=== PATIENT | female | born 1990 | race Caucasian/White ===

== ENCOUNTER → 2024-07-09 12:52 | Outpatient (BNVA) | payer OTHER, SELFPAY | PROVIDERS: PCP Internal Medicine; Visit Provider Nurse Practitioner Family ==

== ENCOUNTER 2024-10-15 08:36 | Emergency (ER) | payer OTHER, SELFPAY ==
[2024-10-15 09:01] VITALS: BP 117/66; PULSE 75; RESP 24; TEMP 35.9; O2SAT 100; BMI 25.5
[2024-10-15 09:18] LABS: Basophils Percent Auto 0.1 % (0-2); Eosinophils Percent Auto 0.3 % (0-4); Hematocrit 38.6 % (37.0-47.0); Hemoglobin 13.4 g/dl (12.0-16.0); Imm Gran Abs Auto 0.05 X10*3/uL (0.00-0.03); Imm Gran Pct Auto 0.4 % (0.0-0.4); Lymphocytes Absolute Auto 0.4 X10*3/uL (1.2-4.9); MANUAL DIFF FLAG SCAN; Mean Corpuscular HGB Conc 34.7 g/dl (31.0-35.0); Mean Corpuscular Hemoglobin 30.4 pg (27.0-33.0); Mean Corpuscular Volume 87.5 fL (80.0-98.0); Mean Platelet Volume 9.2 fL (9.4-12.3); Monocytes Absolute Auto 0.4 X10*3/uL (0.1-1.2); Monocytes Percent Auto 2.8 % (2-11); Neutrophils Absolute Auto 11.9 x10*3/uL (2.0-8.3); Neutrophils Percent Auto 93.4 % (45-73); Platelet Count 272 X10*3/uL (160-400); Red Blood Count 4.41 X10*6/uL (4.20-5.50); Red Cell Distribution Width 13.1 % (11.0-16.0); SCAN SMEAR FLAG 1; White Blood Count 12.7 X10*3/uL (4.8-10.8)
[2024-10-15 09:36] LABS: Alanine Aminotransferase 17 U/L (0-31); Albumin Level 4.4 g/dL (3.5-5.0); Alkaline Phosphatase 54 U/L (39-117); Anion Gap 16 (12-20); Aspartate Amino Transferase 22 U/L (5-31); Bilirubin Total 1.2 mg/dL (0.0-1.0); Blood Urea Nitrogen 12 mg/dL (9-16); Carbon Dioxide 19 mmol/L (22-29); Chloride 110 mmol/L (96-108); Creatinine Clr Calc Pharmacy 96.1; Estimated Glomerular Filt Rate > 60; Glucose Random 161 mg/dL (60-115); Potassium 3.7 mmol/L (3.3-5.1); Sodium 141 mmol/L (135-145); Total Protein 7.5 g/dL (6.5-8.0)
[2024-10-15 09:43] LABS: SLIDE REVIEW VERIFIED
--- OUTSIDE RECORDS SUMMARY | 2024-10-15 10:12 | XMS_ITS | Clinical Summary ---
Author Organization [facility] it Address [address] [place] [address] Care Team Providers Care Media Consultant Outside Sales Name Role Phone Carlos Louie MD Primary Care Provider [phone] Social History Tobacco Use Types Packs/Day Years Used Date Smoking Tobacco: Never Assessed Comments Unknown Sex and Gender Information Value Date Recorded Sex Assigned at Not on file Legal Sex Female 6:56 PM EST Gender Identity Not on file Sexual Orientation Not on file Plan of Treatment Health Maintenance Due Date Last Done Comments DTaP,Tdap,and Td Vaccines (1 - Tdap) 2008 Hepatitis B Vaccines (1 of 3 - 19+ 3-dose series) 2008 Cervical Cancer Screening: P ap Smear 2010 COVID-19 Vaccine (2023-2 5 season) 2024 Influenza Vaccine (#1) 2024 HIB Vaccines Aged Out No longer eligi ble based on patient's age to complete this topic HPV Vaccines Aged Out No longer eligi ble based on patient's age to complete this topic Hepatitis A Vaccines Aged Out No long er eligible based on patient's age to complete this topic IPV Vaccines Aged Out No longer eligi ble based on patient's age to complete this topic MMR Vaccines Aged Out No longer eligi ble based on patient's age to complete this topic Meningococcal ACWY Vaccine Aged Out N o longer eligible based on patient's age to complete this topic Meningococcal B Vacine Aged Out No lo nger eligible based on patient's age to complete this topic Pneumococcal Vaccine: Pediat rics (0 to 5 Years) and At-Risk Patients (6 to 64 Years) Aged Out No longer eligible b ased on patient's age to complete this topic RSV Immunization Patients Un mango 20 months Aged Out No longer eligible b ased on patient's age to complete this topic Varicella Vaccines Aged Out No longer eligible based on patient's age to complete this topic Care Teams Media Consultant Outside Sales Relationship Specialty Start Date End Date Carlos Louie MD [address] [place] [address] Dr Sepideh MA PCP - General Internal Medicine 09/17/12
[2024-10-15 12:21] VITALS: BP 119/76; PULSE 70; RESP 16; TEMP 36.6; O2SAT 100
--- NOTE | 2024-10-15 12:22 | ED.NAVMDI ---
HPI - Nausea/Vomiting/Diarrhea General Chief complaint: Nausea/Vomiting/Diarrhea Stated complaint: Vomiting Time Seen by Provider: 10/15/24 13:58 Source: patient Mode of arrival: ambulatory Limitations: no limitations History of Present Illness ED Provider: Dr. Carpenter HPI Narrative: 34-year-old female past medical history significant for kidney stones daily vape pen to help her sleep at night who presents emergency department with 12 hours of vomiting. She states she has never had this problem in the past she has never taken showers to help with her nausea she denies knowledge of cannabis hyperemesis. She denies any falls or injuries denies chest pain cough or fever. he states she has only had this kind of nausea and vomiting she had kidney stones abuse no flank pain or abdominal pain at this time denies any diarrhea MD elicited complaint: nausea and vomiting Related Data Home Medications ?Medication ?Instructions ?Recorded ?Confirmed clonazepam 0.5 mg tablet 0.5 mg PO DAILY 07/09/24 sertraline 100 mg tablet 200 mg PO DAILY 07/09/24 Previous Rx's ?Medication ?Instructions ?Recorded dicyclomine 10 mg capsule 10 mg PO BID #20 caps 10/15/24 famotidine 20 mg tablet (Pepcid) 20 mg PO BID PRN gastritis #60 tabs 10/15/24 ondansetron 4 mg disintegrating 4 mg PO Q6H #14 tabs 10/15/24 tablet Allergies Allergy/AdvReac Type Severity Reaction Status Date / Time Codeine Sulfate Allergy Unknown Unknown Uncoded 10/15/24 09:01 Review of Systems Review of Systems: Review of systems: General: Patient denies any fever chills recent illness or falls Musculoskeletal: Denies back pain or body aches or other injuries HEENT: denies headache, runny nose, ear pain Respiratory: denies shortness of breath, cough Cardiovascular: no chest pain or palpitations : denies dysuria, frequency Abdomen: nausea vomiting denies abdominal pain Extremities: no swelling, no pain Skin: no diaphoresis Yes all other systems are reviewed and are negative [facility] Past Medical History Medical History (Updated 10/15/24 @ 15:16 by Ha Carpenter DO) Renal calculi Social History Social History (System 10/10/24 @ 11:22 by Krystal Lucas) Patient Tobacco Use Status: Never used Tobacco Smoked in Last 30 Days: No Use of substances other than those prescribed or required for medical reasons: Yes Substance Use Type: Marijuana Substance Use Frequency: Daily Last Used Substance: Days (ago) Advance Directives: No Advance Directives Information Provided: No Do you have a plan to hurt others: No Plan Physical Exam Vital Signs: Vital Signs: Last Vital Signs Temp 97.9 F 10/15/24 12:21 Pulse 71 10/15/24 14:29 Resp 16 10/15/24 14:29 BP 118/72 10/15/24 14:29 Pulse Ox 100 10/15/24 14:29 O2 Del Method Room Air 10/15/24 14:29 BMI result Body Mass Index 25.5 General: Well-appearing well-nourished in no signs of distress HEENT: Normocephalic atraumatic Neck: No signs of JVD, no masses no tenderness or lymphadenopathy Cardiovascular: Regular rate and rhythm Respiratory: Clear to auscultation bilaterally Abdomen: Soft nontender no masses Extremities: Normal pedal pulses no signs of edema Skin: Dry warm no rashes Back: No tenderness full ROM Course Course Course Narrative: This is an RME: Additional HPI, ROS, PE not included below will be deferred to primary provider. RME assessment and note performed by: Rosa Patel PA-C This is a [id number]-female who presents to the ER with a complaints of nausea, vomiting since last night. Son was sick with similar symptoms. Given zofran in triage. does report marijuana use. Plan: Labs, UA, futher ER eval needed. Reevaluation(s) Reevaluation #1: patient re-evaluated multiple times the patient did feel better after getting Zofran and fluids and Pepcid. Patient was able to tolerate some sips as well as crackers I did offer to give her more medications which she declined at this time she wants to try and go home send her home with Zofran I did explain she is to come back if he did not have to tell her anything else educated her trunk cannabis hyperemesis. Time: 15:11 Medications Administered Generic Name Dose Route Start Last Admin Trade Name Freq PRN Reason Stop Dose Admin Sodium Chloride 1,000 mls @ 999 mls/hr 10/15/24 14:15 10/15/24 14:13 Ns IV 10/15/24 15:15 999 mls/hr .Q1H1M CASSIUS Administration Discontinued Medications Generic Name Dose Route Start Last Admin Trade Name Portia PRN Reason Stop Dose Admin Famotidine 20 mg 10/15/24 14:04 10/15/24 14:14 Famotidine/Pf 20 Mg/2 Ml Vial IVPUSH 10/15/24 14:05 20 mg ONCE ONE Administration Ondansetron HCl 4 mg 10/15/24 10:04 10/15/24 12:25 Ondansetron Odt 4 Mg Tab.Rapdis TRANSLINGU 10/15/24 10:05 4 mg ONCE ONE Administration Ondansetron HCl 4 mg 10/15/24 14:04 10/15/24 14:14 Ondansetron Hcl 4 Mg/2 Ml Vial IVPUSH 10/15/24 14:05 4 mg ONCE ONE Administration Medical Decision Making Medical Decision Making [facility] Narrative: Patient here with likely dehydration with vomiting and marijuana use playing a part. I will give pepcid fluids and IV zofran she did get labs and oral zofran in triage. If that does work [facility] Differential Diagnosis Differential Diagnoses: The differential diagnosis associated with the presentation includes dehydration nausea vomiting dehydration Admission/Observation Consideration of admission/observation: Escalation of care including admission/observation considered Lab Data [facility] Lab Attestation statement: I reviewed the patient's lab results. 10/15/24 09:10 10/15/24 09:10 Labs: Lab Results 10/15/24 Range/Units 09:10 WBC 12.7 H (4.8-10.8) X10*3/uL RBC 4.41 (4.20-5.50) X10*6/uL Hgb 13.4 (12.0-16.0) g/dl Hct 38.6 (37.0-47.0) % MCV 87.5 (80.0-98.0) fL MCH 30.4 (27.0-33.0) pg MCHC 34.7 (31.0-35.0) g/dl RDW 13.1 (11.0-16.0) % Plt Count 272 (160-400) X10*3/uL MPV 9.2 L (9.4-12.3) fL Immature Gran % (Auto) 0.4 (0.0-0.4) % Neut % (Auto) 93.4 H (45-73) % Lymph % (Auto) 3.0 L (20-40) % [place] % (Auto) 2.8 (2-11) % Eos % (Auto) 0.3 (0-4) % Baso % (Auto) 0.1 (0-2) % Lymph # (Auto) 0.4 L (1.2-4.9) X10*3/uL [place] # (Auto) 0.4 (0.1-1.2) X10*3/uL Eos # (Auto) 0.0 (0.0-0.4) X10*3/uL Baso # (Auto) 0.0 (0.0-0.2) X10*3/uL Abs Immat Gran (auto) 0.05 H (0.00-0.03) X10*3/uL Absolute Neuts (auto) 11.9 H (2.0-8.3) x10*3/uL Absolute Nucleated RBC 0.000 (0.0-0.012) X10*3/uL Nucleated RBC % (auto) 0.0 (0.0-0.2) /100WBC Smear Tech's Comments VERIFIED Sodium 141 (135-145) mmol/L Potassium 3.7 (3.3-5.1) mmol/L Chloride 110 H (96-108) mmol/L Carbon Dioxide 19 L (22-29) mmol/L Anion Gap 16 (12-20) BUN 12 (9-16) mg/dL Creatinine 0.80 (0.5-1.4) mg/dL Estim Creat Clear Calc 96.1 Estimated GFR > 60 Random Glucose 161 H (60-115) mg/dL Calcium 9.0 (8.4-10.2) mg/dL Magnesium 1.7 (1.6-2.6) mg/dL Total Bilirubin 1.2 H (0.0-1.0) mg/dL AST 22 (5-31) U/L ALT 17 (0-31) U/L Alkaline Phosphatase 54 (39-117) U/L Total Protein 7.5 (6.5-8.0) g/dL Albumin 4.4 (3.5-5.0) g/dL Beta HCG, Quant < 2 mIU/mL Independent Historian Clinical information obtained from an independent historian. History obtained from or confirmed by: Spouse External Record Review External record reviewed: Inpatient record Discharge Plan Discharge Clinical Impression: Dehydration, Vomiting Patient Disposition: Home, Self-Care Instructions: Dehydration (ED), Acute Nausea and Vomiting (ED) Additional Instructions: You were seen today for vomiting by Dr. Ha Carpenter You had labs and were given zofran an antiemetic. This might be related to marijuana use. We don't know why but some people are affected and have recurrent vomiting. It might be related to the increase concentration of THC as it is now much more researched than in the past. Either way please take zofran for nausea and vomiting. IF you are still vomiting even on zofran have pain or any other concerns please return to the ER. Prescriptions: New famotidine [Pepcid] 20 mg tablet 20 mg PO BID PRN (Reason: gastritis) Qty: 60 0RF ondansetron 4 mg tablet,disintegrating 4 mg PO Q6H Qty: 14 0RF dicyclomine 10 mg capsule 10 mg PO BID Qty: 20 0RF No Action sertraline 100 mg tablet 200 mg PO DAILY clonazepam 0.5 mg tablet 0.5 mg PO DAILY Print Language: Slovenian
[2024-10-15] MEDS: Ondansetron ODT 4 MG TAB.RAPDIS TRANSLINGU (12:25)
[2024-10-15 12:47] LABS: Magnesium 1.7 mg/dL (1.6-2.6)
[2024-10-15 12:48] LABS: HCG Quantitative < 2 mIU/mL
[2024-10-15] MEDS: 0.9 % Sodium Chloride 1,000 ML 999 ML IV (14:13)
[2024-10-15] MEDS: Famotidine/PF 20 MG/2 ML VIAL IVPUSH (14:14)
[2024-10-15] MEDS: ondansetron HCL 4 MG/2 ML VIAL IVPUSH (14:14)
[2024-10-15 14:29] VITALS: BP 118/72; PULSE 71; RESP 16; O2SAT 100
[2024-10-15 15:35] VITALS: BP 97/46; PULSE 76; RESP 16; TEMP 36.5; O2SAT 98
== END 2024-10-15 16:23 | disposition home or self-care (01) ==
PROVIDERS: Emergency Medicine; Physician Assistant Medical; Emergency Provider Student in an Organized Health Care Education/Training Program; PCP Internal Medicine
DX: E86.0 Dehydration (principal); R11.2 Nausea with vomiting, unspecified; R10.2 Pelvic and perineal pain; F17.290 Nicotine dependence, other tobacco product, uncomplicated; F12.90 Cannabis use, unspecified, uncomplicated; Z87.442 Personal history of urinary calculi; Z79.899 Other long term (current) drug therapy
CPT/HCPCS: 36415; 80053; 83735; 84702; 85025; 96361; 96374; 96375; 99284; J2405

== ENCOUNTER 2025-01-07 07:38 | Outpatient (AMB) | payer OTHER, SELFPAY ==
--- NOTE | 2025-01-07 07:38 | A.OFFVIS_ITS ---
Intake Visit Reasons: litholink results follow up Intake Note: Patient presents today for tele visit follow up on: kidney stone and litholink results Urology Medication: none Blood Thinner: none Separator Inserter Required: No Accompanied by: Self / Same As Patient Allergies Codeine Sulfate Allergy (Unknown, Uncoded 01/07/25 09:04) Unknown Medication List - Last Reconciled 01/07/25 by RAFFI Anderson clonazepam 0.5 mg PO DAILY sertraline 200 mg PO DAILY HPI Comments Details: Alice is a pleasant 34-year-old female patient of Dr. Simental. She is being followed up on today via telehealth for her history of nephrolithiasis. In discussion with the patient today she reports to be doing and feeling well. She denies having had any bothersome urinary issues or concerns since her last follow-up. Recent Litholink results reviewed with the patient today 10/08 low urine volume of 1.1 L, mild hyperuricosuria, and moderate calcium oxalate stone risks. We discussed increasing urine volume of 2.5 L. previous renal imaging 07/07 noting bilateral kidneys with no hydronephrosis. Bilateral nonobstructing calculi measuring 3-4 mm in size. She has a longstanding history of nephrolithiasis since the age of [age] years old. Last episode February of 2022 in which she was able to pass the stone on her own. In discussion with the patient today she reports she continues to drink adequate amount of daily fluid intake in addition to adding lemon to her water. She currently denies any bothersome urinary issues or concerns at this time. She denies urinary urgency, urinary frequency, incontinence, nocturia, hematuria, dysuria, foul smelling urine, changes to urinary stream, flank pain, fever, and or chills. She is happy with her current voiding parameters. We discussed obtaining repeat renal ultrasound as well as Litholink with increase in hydration. She otherwise offers no other issues or concerns at this time. [facility] Medical History Renal calculi Social History Patient Tobacco Use Status: Never used Tobacco Substance Use Type: Marijuana Review of Systems Const All systems reviewed & are unremarkable except as noted in HPI and below Physical Exam Const General: cooperative Resp Effort & Inspection: able to speak in complete sentences Psych Attitude: cooperative Thought process: Normal thought process present Thought content: Normal thought content present Insight: Fair insight present (Psych) Judgement: Fair judgement present (Psych) Telehealth Telehealth Telehealth Platform: [employer] Location of provider rendering services: practice address Location of patient: address on file Patient Identification confirmed using: Name, : Yes Telehealth method: voice only Patient verbally consented to treatment: Yes Patient verbally consented to billing insurance company: Yes Patient informed of any privacy concerns related to visit: Yes Minutes spent on Phone/Video with Pt.: 15 Assessment & Plan Assessment & Plan (1) Renal calculi: Code(s): N20.0 - Calculus of kidney Category: Medical Plan Recent Litholink results reviewed with the patient today; as noted above. We discussed importance of increase in hydration related to nephrolithiasis as well as recent Litholink results. She currently denies any bothersome urinary issues or concerns. Continue adding 1 oz of lemon juice to water daily. Will repeat Litholink and obtain renal ultrasound in 4-6 months. Follow-up in 4-6 months with Litholink and imaging; or sooner with any issues, concerns, and or questions. Orders: Orders US renal BI 4 Months N20.0 - Calculus of kidney URORISK 4 Months N20.0 - Calculus of kidney Patient Instructions: The patient had an opportunity to ask questions regarding the treatment plan. All questions were answered. Physical exam, labs, and imaging were discussed and reviewed in detail. As well as risks, benefits, and discussion of treatment choices. No major barriers to understanding were identified. The patient expressed understanding and agreement with the above treatment plan. The patient was made aware they should contact our office by phone for worsening of their current condition, the appearance of new symptoms, or with any questions or concerns. Compliance is encouraged with any medications and follow up testing that is ordered. It is a privilege to be allowed the opportunity to participate in? your urological care.? Again, if you have any questions or concerns If you have any questions or concerns please do not hesitate to contact me. The office is [phone]. This note is constructed using voice recognition software. While every effort has been made to ensure accuracy marble and granite polisher errors may have been included. Yours sincerely, RAFFI Anderson Coding Level of Care Code Tele Est Pt Level 3 (13700) Diagnoses Renal calculi N20.0
--- OUTSIDE RECORDS SUMMARY | 2025-01-07 07:40 | XMS_ITS | Clinical Summary ---
Author Organization [facility] Address [address] [place] [address] Care Team Providers Care Foundry Metallurgist Name Role Phone Carlos Louie MD Primary Care Provider [phone] Social History Tobacco Use Types Packs/Day Years [...] Vaccine (2023-2 5 season) 2024 Influenza Vaccine (Season Ended) 2025 HIB Vaccines Aged Out No longer eligi [...] age to complete this topic Meningococcal B Vaccine Aged Out No l onger eligible based on patient's age to complete [...] age to complete this topic Care Teams Foundry Metallurgist Relationship Specialty Start Date End Date Carlos Louie MD [address] [place] [address] Dr Sepideh MA PCP - General Internal Medicine 09/17/12
== END 2025-01-07 08:07 | disposition home or self-care (01) ==
LOC: HO.HUSH 07:38
PROVIDERS: PCP Nurse Practitioner Family; Visit Provider Nurse Practitioner Family
DX: N20.0 Calculus of kidney (principal)
CPT/HCPCS: 99213

== ENCOUNTER → 2025-01-07 07:38 | Outpatient (BNVA) | payer OTHER, SELFPAY | PROVIDERS: PCP Nurse Practitioner Family; Visit Provider Nurse Practitioner Family ==